=== PATIENT | female | born 1975 | race American Indian/Alaskan Native ===

== ENCOUNTER 2016-10-29 01:09 | Emergency (ER) | payer MEDICAID ==
[2016-10-29 01:26] VITALS: BP 137/97
[2016-10-29 02:01] LABS: Eosinophils % (Auto) TNR % (0.0-4.3); Hematocrit TNR % (30.3-42.9); Hemoglobin TNR gm/dl (10.1-14.3); Red Blood Count TNR M/mm3 (3.65-5.03); White Blood Count TNR K/mm3 (4.5-11.0)
[2016-10-29 02:02] LABS: Basophils % (Auto) TNR % (0.0-1.8); Diff Status TNR; Mean Corpuscular HGB Conc TNR % (30-34); Mean Corpuscular Hemoglobin TNR pg (28-32); Mean Corpuscular Volume TNR fl (79-97); Mean Platelet Volume TNR fl (6-12); Platelet Count TNR K/mm3 (140-440); Red Cell Distribution Width TNR % (13.2-15.2)
[2016-10-29 02:16] LABS: Amylase 71 units/L (27-131); Anion Gap 16 mmol/L; Blood Urea Nitrogen 12 mg/dL (7-17); Calcium 8.6 mg/dL (8.4-10.2); Carbon Dioxide 25 mmol/L (22-30); Chloride 98.4 mmol/L (98-107); Glucose 117 mg/dL (65-100); Potassium 3.6 mmol/L (3.6-5.0); Sodium 136 mmol/L (137-145)
[2016-10-29 02:46] LABS: Basophils % (Auto) 1.2 % (0.0-1.8); Hematocrit 37.4 % (30.3-42.9); Hemoglobin 12.1 gm/dl (10.1-14.3); Mean Corpuscular HGB Conc 32 % (30-34); Mean Corpuscular Volume 79 fl (79-97); Platelet Count 401 K/mm3 (140-440); Red Blood Count 4.74 M/mm3 (3.65-5.03); Red Cell Distribution Width 14.8 % (13.2-15.2); White Blood Count 7.4 K/mm3 (4.5-11.0)
[2016-10-29 03:00] LABS: Mean Corpuscular Hemoglobin 25 pg (28-32)
== END 2016-10-29 02:22 | disposition left against medical advice (07) ==
LOC: ED 01:09
DX: R07.81 Pleurodynia (principal); Z53.21 Procedure and treatment not carried out due to patient leaving prior to being seen by health care provider
CPT/HCPCS: 36415; 80048; 82150; 84484; 85025; 93005; 93010

== ENCOUNTER 2018-10-13 04:33 | Emergency (ER) | payer MEDICARE ==
[2018-10-13] MEDS ORDERED: BABY ASPIRIN PO ONE (06:20)
[2018-10-13] MEDS ORDERED: PROVENTIL IH ONE (06:22)
[2018-10-13] MEDS ORDERED: CARAFATE PO ONE (06:23)
--- NOTE | 2018-10-13 06:25 | Emergency Department Report ---
ED General Adult HPI - General Chief complaint: Dyspnea/Respdistress Stated complaint: SOB Time Seen by Provider: 10/13/18 06:01 Source: patient Mode of arrival: Ambulatory Limitations: No Limitations - History of Present Illness Initial comments: Patient presents to the emergency Department chief complaint of chest pain and palpitations. Patient states she has a history of asthma, acid reflux, and hiatal hernia. Patient also states that her asthma is acting up as well. Patient states that for the last 3 days she saw heart palpitations and chest pain along with the burning and acid reflux. Patient states that she had her thyroid removed in April and has not had a thyroid levels checked since that time. Patient denies any ventricular chest pain better or worse. Patient has had continuous chest pain 3 days. -: Gradual Location: chest Radiation: non-radiation Severity scale (0 -10): 5 Quality: burning Consistency: constant Improves with: none Worsens with: none Associated Symptoms: denies other symptoms Treatments Prior to Arrival: none - Related Data Home Medications Medication Instructions Recorded Confirmed Last Taken ALBUTEROL Inhaler (OR & NICU) 2 puff IH QID PRN 07/09/13 05/17/14 05/17/14 [Proair] Fluticasone/Salmeterol [Advair 1 puff IH BID 05/17/14 05/17/14 05/16/14 Diskus 100-50 mcg] Montelukast Sodium [Singulair] 4 mg PO QPM 05/17/14 05/17/14 05/16/14 Previous Rx's Medication Instructions Recorded Last Taken Type ALBUTEROL NEB's [Proventil 0.083% 2.5 mg IH TID PRN #25 units 09/23/13 05/17/14 Rx NEBS] Famotidine [Pepcid] 40 mg PO QHS #7 tablet 10/15/13 05/17/14 Rx Acetaminophen/Codeine 1 tab PO Q4HR PRN #20 tablet 05/17/14 Unknown Rx [Acetaminophen-Codeine #3 TAB] Sucralfate [Carafate] 1 gm PO Q6HR #60 tablet 05/17/14 Unknown Rx raNITIdine HCl [Ranitidine] 300 mg PO QPM #30 tablet 05/17/14 Unknown Rx Albuterol Sulfate [Albuterol 0.63% 0.63 mg IH Q4H PRN #25 neb 12/25/15 Unknown Rx NEBS] Amoxicillin/K Clav Tab [Augmentin 1 tab PO Q12HR #14 tab 09/13/15 Unknown Rx 875 mg] Ipratropium [Atrovent] 0.5 mg IH Q6H PRN #25 neb 09/13/15 Unknown Rx Promethazine [Phenergan TAB] 25 mg PO Q6HR PRN #12 tab 09/13/15 Unknown Rx ALBUTEROL Inhaler (OR & NICU) 2 puff IH QID PRN #1 device 03/04/16 Unknown Rx [ProAir HFA Inhaler] Albuterol Sulfate [Albuterol 0.63% 0.63 mg IH Q4HR PRN #30 vial 03/04/16 Unknown Rx NEBS] Azithromycin [Zithromax TAB] 250 mg PO QDAY #6 tablet 03/04/16 Unknown Rx predniSONE [Deltasone] 50 mg PO QDAY #5 tab 03/04/16 Unknown Rx Dicyclomine [Bentyl] 20 mg PO QID PRN #20 tablet 09/16/18 Unknown Rx Ondansetron [Zofran Odt] 4 mg PO Q8HR PRN #20 tab.rapdis 09/16/18 Unknown Rx Acetaminophen/Codeine [Tylenol 1 tab PO Q6H PRN #12 tab 09/23/18 Unknown Rx /Codeine # 3 tab] Ondansetron [Zofran Odt] 4 mg PO Q8HR PRN #20 tab.rapdis 09/23/18 Unknown Rx Esomeprazole Magnesium [Nexium] 20 mg PO BID #60 capsule. 10/13/18 Unknown Rx Ondansetron [Zofran Odt] 4 mg PO Q6HR PRN #12 tab.rapdis 10/13/18 Unknown Rx Allergies Allergy/AdvReac Type Severity Reaction Status Date / Time ibuprofen Allergy Hives Verified 09/13/15 02:27 shellfish derived Allergy Anaphylaxis Verified 07/09/13 12:03 tramadol Allergy Shortness Verified 09/03/13 05:48 of Breath ED Review of Systems ROS: Stated complaint: SOB Other details as noted in HPI Comment: All other systems reviewed and negative Constitutional: denies: chills, fever Eyes: denies: eye pain, eye discharge, vision change ENT: denies: ear pain, throat pain Respiratory: denies: cough, shortness of breath, wheezing Cardiovascular: chest pain. denies: palpitations Endocrine: no symptoms reported Gastrointestinal: denies: abdominal pain, nausea, diarrhea Genitourinary: denies: urgency, dysuria, discharge Musculoskeletal: denies: back pain, joint swelling, arthralgia Skin: denies: rash, lesions Neurological: denies: headache, weakness, paresthesias Psychiatric: denies: anxiety, depression Hematological/Lymphatic: denies: easy bleeding, easy bruising ED Past Medical Hx - Past Medical History Previous Medical History?: Yes Hx Hypertension: No Hx Diabetes: No Hx Deep Vein Thrombosis: No Hx Pulmonary Embolism: Yes Hx GERD: Yes Hx Renal Disease: No Hx Sickle Cell Disease: No Hx Seizures: No Hx Asthma: Yes Hx HIV: No Additional medical history: Vaginal delivery X 6 - Surgical History Past Surgical History?: Yes Additional Surgical History: , hernia repair, thyroidectomy - Social History Smoking Status: Never Smoker Substance Use Type: None - Medications Home Medications: Home Medications Medication Instructions Recorded Confirmed Last Taken Type ALBUTEROL Inhaler (OR & NICU) 2 puff IH QID PRN 07/09/13 05/17/14 05/17/14 History [Proair] ALBUTEROL NEB's [Proventil 0.083% 2.5 mg IH TID PRN #25 units 09/23/13 05/17/14 05/17/14 Rx NEBS] Famotidine [Pepcid] 40 mg PO QHS #7 tablet 10/15/13 05/17/14 05/17/14 Rx Acetaminophen/Codeine 1 tab PO Q4HR PRN #20 tablet 05/17/14 Unknown Rx [Acetaminophen-Codeine #3 TAB] Fluticasone/Salmeterol [Advair 1 puff IH BID 05/17/14 05/17/14 05/16/14 History Diskus 100-50 mcg] Montelukast Sodium [Singulair] 4 mg PO QPM 05/17/14 05/17/14 05/16/14 History Sucralfate [Carafate] 1 gm PO Q6HR #60 tablet 05/17/14 Unknown Rx raNITIdine HCl [Ranitidine] 300 mg PO QPM #30 tablet 05/17/14 Unknown Rx Albuterol Sulfate [Albuterol 0.63% 0.63 mg IH Q4H PRN #25 neb 09/13/15 Unknown Rx NEBS] Amoxicillin/K Clav Tab [Augmentin 1 tab PO Q12HR #14 tab 09/13/15 Unknown Rx 875 mg] Ipratropium [Atrovent] 0.5 mg IH Q6H PRN #25 neb 09/13/15 Unknown Rx Promethazine [Phenergan TAB] 25 mg PO Q6HR PRN #12 tab 09/13/15 Unknown Rx ALBUTEROL Inhaler (OR & NICU) 2 puff IH QID PRN #1 device 03/04/16 Unknown Rx [ProAir HFA Inhaler] Albuterol Sulfate [Albuterol 0.63% 0.63 mg IH Q4HR PRN #30 vial 03/04/16 Unknown Rx NEBS] Azithromycin [Zithromax TAB] 250 mg PO QDAY #6 tablet 03/04/16 Unknown Rx predniSONE [Deltasone] 50 mg PO QDAY #5 tab 03/04/16 Unknown Rx Dicyclomine [Bentyl] 20 mg PO QID PRN #20 tablet 09/16/18 Unknown Rx Ondansetron [Zofran Odt] 4 mg PO Q8HR PRN #20 tab.rapdis 09/16/18 Unknown Rx Acetaminophen/Codeine [Tylenol 1 tab PO Q6H PRN #12 tab 09/23/18 Unknown Rx /Codeine # 3 tab] Ondansetron [Zofran Odt] 4 mg PO Q8HR PRN #20 tab.rapdis 09/23/18 Unknown Rx Esomeprazole Magnesium [Nexium] 20 mg PO BID #60 capsule.dr 10/13/18 Unknown Rx Ondansetron [Zofran Odt] 4 mg PO Q6HR PRN #12 tab.rapdis 10/13/18 Unknown Rx ED Physical Exam - General Limitations: No Limitations General appearance: alert, in no apparent distress - Head Head exam: Present: atraumatic, normocephalic - Eye Eye exam: Present: normal appearance, PERRL, EOMI - ENT ENT exam: Present: mucous membranes moist - Neck Neck exam: Present: normal inspection - Respiratory Respiratory exam: Present: normal lung sounds bilaterally. Absent: respiratory distress, wheezes, rales, rhonchi - Cardiovascular Cardiovascular Exam: Present: regular rate, normal rhythm. Absent: systolic murmur, diastolic murmur, rubs, gallop - GI/Abdominal GI/Abdominal exam: Present: soft, normal bowel sounds. Absent: distended, tenderness - Extremities Exam Extremities exam: Present: normal inspection - Back Exam Back exam: Present: normal inspection - Neurological Exam Neurological exam: Present: alert, oriented X3, CN II-XII intact. Absent: motor sensory deficit - Psychiatric Psychiatric exam: Present: normal affect, normal mood - Skin Skin exam: Present: warm, dry, intact, normal color. Absent: rash ED Course Vital Signs 10/13/18 10/13/18 10/13/18 04:35 04:38 05:00 Temperature 98.3 F 98.3 F 97.9 F Pulse Rate 92 H 97 H 82 Respiratory 18 18 16 Rate Blood Pressure 171/80 Blood Pressure 201/90 126/80 [Right] O2 Sat by Pulse 99 98 99 Oximetry 10/13/18 09:30 Temperature Pulse Rate Respiratory 18 Rate Blood Pressure Blood Pressure [Right] O2 Sat by Pulse Oximetry ED Medical Decision Making - Lab Data Result diagrams: 10/13/18 06:33 10/13/18 06:33 Lab Results 10/13/18 10/13/18 10/13/18 Range/Units 06:33 06:33 06:33 WBC 8.9 (4.5-11.0) K/mm3 RBC 4.19 (3.65-5.03) M/mm3 Hgb 10.4 (10.1-14.3) gm/dl Hct 32.7 (30.3-42.9) % MCV 78 L (79-97) fl MCH 25 L (28-32) pg MCHC 32 (30-34) % RDW 16.2 H (13.2-15.2) % Plt Count 381 (140-440) K/mm3 Lymph % (Auto) 24.3 (13.4-35.0) % Emmons % (Auto) 6.7 (0.0-7.3) % Eos % (Auto) 0.5 (0.0-4.3) % Baso % (Auto) 0.8 (0.0-1.8) % Lymph # 2.2 (1.2-5.4) K/mm3 Emmons # 0.6 (0.0-0.8) K/mm3 Eos # 0.0 (0.0-0.4) K/mm3 Baso # 0.1 (0.0-0.1) K/mm3 Seg Neutrophils % 67.7 (40.0-70.0) % Seg Neutrophils # 6.0 (1.8-7.7) K/mm3 PT (12.2-14.9) Sec. INR (0.87-1.13) APTT (24.2-36.6) Sec. Sodium (137-145) mmol/L Potassium (3.6-5.0) mmol/L Chloride (98-107) mmol/L Carbon Dioxide (22-30) mmol/L Anion Gap mmol/L BUN (7-17) mg/dL Creatinine (0.7-1.2) mg/dL Estimated GFR ml/min BUN/Creatinine Ratio % Glucose (65-100) mg/dL Calcium (8.4-10.2) mg/dL Total Bilirubin (0.1-1.2) mg/dL AST (5-40) units/L ALT (7-56) units/L Alkaline Phosphatase (35-129) units/L Troponin T (0.00-0.029) ng/mL Total Protein (6.3-8.2) g/dL Albumin (3.9-5) g/dL Albumin/Globulin Ratio % Lipase (13-60) units/L TSH 3.030 (0.270-4.200) mlU/mL Thyroxine (T4) 8.5 (4.0-12.0) ug/dL Urine Color (Yellow) Urine Turbidity (Clear) Urine pH (5.0-7.0) Ur Specific [place] (1.003-1.030) Urine Protein (Negative) mg/dL Urine Glucose (UA) (Negative) mg/dL Urine Ketones (Negative) mg/dL Urine Blood (Negative) Urine Nitrite (Negative) Urine Bilirubin (Negative) Urine Urobilinogen (<2.0) mg/dL Ur Leukocyte Esterase (Negative) Urine WBC (Auto) Urine RBC (Auto) (0.0-6.0) /HPF U Epithel Cells (Auto) (0-13.0) /HPF Urine HCG, Qual (Negative) Urine Opiates Screen Urine Methadone Screen Ur Barbiturates Screen Ur Phencyclidine Scrn Ur Amphetamines Screen U Benzodiazepines Scrn Urine Cocaine Screen U Marijuana (THC) Screen Drugs of Abuse Note 10/13/18 10/13/18 10/13/18 Range/Units 06:33 06:33 09:04 WBC (4.5-11.0) K/mm3 RBC (3.65-5.03) M/mm3 Hgb (10.1-14.3) gm/dl Hct (30.3-42.9) % MCV (79-97) fl MCH (28-32) pg MCHC (30-34) % RDW (13.2-15.2) % Plt Count (140-440) K/mm3 Lymph % (Auto) (13.4-35.0) % Emmons % (Auto) (0.0-7.3) % Eos % (Auto) (0.0-4.3) % Baso % (Auto) (0.0-1.8) % Lymph # (1.2-5.4) K/mm3 Emmons # (0.0-0.8) K/mm3 Eos # (0.0-0.4) K/mm3 Baso # (0.0-0.1) K/mm3 Seg Neutrophils % (40.0-70.0) % Seg Neutrophils # (1.8-7.7) K/mm3 PT 15.9 H (12.2-14.9) Sec. INR 1.23 H (0.87-1.13) APTT 25.8 (24.2-36.6) Sec. Sodium 142 (137-145) mmol/L Potassium 3.8 (3.6-5.0) mmol/L Chloride 102.7 (98-107) mmol/L Carbon Dioxide 24 (22-30) mmol/L Anion Gap 19 mmol/L BUN 11 (7-17) mg/dL Creatinine 0.7 (0.7-1.2) mg/dL Estimated GFR > 60 ml/min BUN/Creatinine Ratio 16 % Glucose 105 H (65-100) mg/dL Calcium 8.8 (8.4-10.2) mg/dL Total Bilirubin 0.20 (0.1-1.2) mg/dL AST 12 (5-40) units/L ALT 9 (7-56) units/L Alkaline Phosphatase 74 (35-129) units/L Troponin T < 0.010 < 0.010 (0.00-0.029) ng/mL Total Protein 6.7 (6.3-8.2) g/dL Albumin 3.7 L (3.9-5) g/dL Albumin/Globulin Ratio 1.2 % Lipase 25 (13-60) units/L TSH (0.270-4.200) mlU/mL Thyroxine (T4) (4.0-12.0) ug/dL Urine Color (Yellow) Urine Turbidity (Clear) Urine pH (5.0-7.0) Ur Specific [place] (1.003-1.030) Urine Protein (Negative) mg/dL Urine Glucose (UA) (Negative) mg/dL Urine Ketones (Negative) mg/dL Urine Blood (Negative) Urine Nitrite (Negative) Urine Bilirubin (Negative) Urine Urobilinogen (<2.0) mg/dL Ur Leukocyte Esterase (Negative) Urine WBC (Auto) Urine RBC (Auto) (0.0-6.0) /HPF U Epithel Cells (Auto) (0-13.0) /HPF Urine HCG, Qual (Negative) Urine Opiates Screen Urine Methadone Screen Ur Barbiturates Screen Ur Phencyclidine Scrn Ur Amphetamines Screen U Benzodiazepines Scrn Urine Cocaine Screen U Marijuana (THC) Screen Drugs of Abuse Note 10/13/18 10/13/18 10/13/18 Range/Units Unknown Unknown Unknown WBC (4.5-11.0) K/mm3 RBC (3.65-5.03) M/mm3 Hgb (10.1-14.3) gm/dl Hct (30.3-42.9) % MCV (79-97) fl MCH (28-32) pg MCHC (30-34) % RDW (13.2-15.2) % Plt Count (140-440) K/mm3 Lymph % (Auto) (13.4-35.0) % Emmons % (Auto) (0.0-7.3) % Eos % (Auto) (0.0-4.3) % Baso % (Auto) (0.0-1.8) % Lymph # (1.2-5.4) K/mm3 Emmons # (0.0-0.8) K/mm3 Eos # (0.0-0.4) K/mm3 Baso # (0.0-0.1) K/mm3 Seg Neutrophils % (40.0-70.0) % Seg Neutrophils # (1.8-7.7) K/mm3 PT (12.2-14.9) Sec. INR (0.87-1.13) APTT (24.2-36.6) Sec. Sodium (137-145) mmol/L Potassium (3.6-5.0) mmol/L Chloride (98-107) mmol/L Carbon Dioxide (22-30) mmol/L Anion Gap mmol/L BUN (7-17) mg/dL Creatinine (0.7-1.2) mg/dL Estimated GFR ml/min BUN/Creatinine Ratio % Glucose (65-100) mg/dL Calcium (8.4-10.2) mg/dL Total Bilirubin (0.1-1.2) mg/dL AST (5-40) units/L ALT (7-56) units/L Alkaline Phosphatase (35-129) units/L Troponin T (0.00-0.029) ng/mL Total Protein (6.3-8.2) g/dL Albumin (3.9-5) g/dL Albumin/Globulin Ratio % Lipase (13-60) units/L TSH (0.270-4.200) mlU/mL Thyroxine (T4) (4.0-12.0) ug/dL Urine Color Yellow (Yellow) Urine Turbidity Clear (Clear) Urine pH 6.0 (5.0-7.0) Ur Specific [place] 1.010 (1.003-1.030) Urine Protein <15 mg/dl (Negative) mg/dL Urine Glucose (UA) Neg (Negative) mg/dL Urine Ketones Neg (Negative) mg/dL Urine Blood Neg (Negative) Urine Nitrite Neg (Negative) Urine Bilirubin Neg (Negative) Urine Urobilinogen < 2.0 (<2.0) mg/dL Ur Leukocyte Esterase Neg (Negative) Urine WBC (Auto) Not Reportable Urine RBC (Auto) 1.0 (0.0-6.0) /HPF U Epithel Cells (Auto) 3.0 (0-13.0) /HPF Urine HCG, Qual Negative (Negative) Urine Opiates Screen Presumptive negative Urine Methadone Screen Presumptive negative Ur Barbiturates Screen Presumptive negative Ur Phencyclidine Scrn Presumptive negative Ur Amphetamines Screen Presumptive negative U Benzodiazepines Scrn Presumptive negative Urine Cocaine Screen Presumptive negative U Marijuana (THC) Screen Presumptive negative Drugs of Abuse Note Disclamer - EKG Data -: EKG Interpreted by Me EKG shows normal: sinus rhythm - Radiology Data Radiology results: report reviewed - Medical Decision Making Discussed results with the patient Patient had improvement with medications in the ED Patient states she's been out of her Nexium and thinks this is why she's having this pain Critical care attestation.: If time is entered above; I have spent that time in minutes in the direct care of this critically ill patient, excluding procedure time. ED Disposition Clinical Impression: Nonspecific chest pain Disposition: DC-01 TO HOME OR SELFCARE Is pt being admited?: No Does the pt Need Aspirin: No Condition: Stable Instructions: Chest Pain (ED) Additional Instructions: return if worse Prescriptions: Esomeprazole Magnesium [Nexium] 20 mg PO BID #60 capsule. Ondansetron [Zofran Odt] 4 mg PO Q6HR PRN #12 tab.rapdis PRN Reason: Nausea Referrals: PRABHAKAR SARAVIA MD [Primary Care Provider] - 3-5 Days Time of Disposition: 10:36
[2018-10-13] MEDS ORDERED: PROTONIX PO ONE (06:48)
[2018-10-13] MEDS: PROTONIX IV ONE ×2 (06:50→06:51)
[2018-10-13 07:07] LABS: Basophils # (Auto) 0.1 K/mm3 (0.0-0.1); Basophils % (Auto) 0.8 % (0.0-1.8); Eosinophils % (Auto) 0.5 % (0.0-4.3); Hematocrit 32.7 % (30.3-42.9); Hemoglobin 10.4 gm/dl (10.1-14.3); Lymphocytes # (Auto) 2.2 K/mm3 (1.2-5.4); Lymphocytes % (Auto) 24.3 % (13.4-35.0); Mean Corpuscular HGB Conc 32 % (30-34); Mean Corpuscular Volume 78 fl (79-97); Monocytes # (Auto) 0.6 K/mm3 (0.0-0.8); Monocytes % (Auto) 6.7 % (0.0-7.3); Platelet Count 381 K/mm3 (140-440); Red Blood Count 4.19 M/mm3 (3.65-5.03); Red Cell Distribution Width 16.2 % (13.2-15.2)
[2018-10-13 07:18] LABS: Alanine Aminotransferase 9 units/L (7-56); Albumin 3.7 g/dL (3.9-5); BUN/Creatinine Ratio 16; Blood Urea Nitrogen 11 mg/dL (7-17); Calcium 8.8 mg/dL (8.4-10.2); Hemolysis Index 18; INR 1.23 (0.87-1.13); Partial Thromboplastin Time 25.8 Sec. (24.2-36.6)
[2018-10-13] MEDS ORDERED: LIDOCAINE VISCOUS 2% PO ONE (07:58)
[2018-10-13] MEDS ORDERED: ALUM-MAG HYDROX-SIMETH 200-200-20MG/5ML PO ONE (07:58)
[2018-10-13 08:20] LABS: Bilirubin,Urine NEG (Negative); Blood,Urine NEG (Negative); Color,Urine Yellow (Yellow); Protein,Urine <15 mg/dL mg/dL (Negative); Urobilinogen,Urine < 2.0 mg/dL (<2.0)
[2018-10-13 08:24] LABS: HCG Qualitative,Urine Negative (Negative)
[2018-10-13 08:34] LABS: Amphetamine Screen,Urine PRESUMPTIVE NEGATIVE; Benzodiazepines Screen,Urine PRESUMPTIVE NEGATIVE; Cannabinoid Screen,Urine PRESUMPTIVE NEGATIVE; Cocaine Screen,Urine PRESUMPTIVE NEGATIVE; Methadone Screen,Urine PRESUMPTIVE NEGATIVE; Opiate Screen,Urine PRESUMPTIVE NEGATIVE
[2018-10-13] MEDS ORDERED: ZOFRAN IV ONE (09:09)
[2018-10-13] MEDS ORDERED: MORPHINE IV ONE (09:09)
--- NOTE | 2018-10-13 09:43 | XRay Report ---
AP CHEST: HISTORY: chest pain AP view of the chest demonstrates a normal mediastinal and cardiac contour with clear lungs and normal bony and soft tissue structures. IMPRESSION: Unremarkable AP chest.
[2018-10-13] MEDS ORDERED: NORCO 5/325 PO ONE (09:48)
[2018-10-13] MEDS ORDERED: ZOFRAN ODT ONE (09:56)
[2018-10-13 10:57] VITALS: BP 132/80
== END 2018-10-13 11:17 | disposition home or self-care (01) ==
LOC: ED 04:33
DX: R07.89 Other chest pain (principal); R00.2 Palpitations; K21.9 Gastro-esophageal reflux disease without esophagitis; J45.909 Unspecified asthma, uncomplicated; Z79.899 Other long term (current) drug therapy; Z86.711 Personal history of pulmonary embolism; E89.0 Postprocedural hypothyroidism; Z88.6 Allergy status to analgesic agent; Z91.013 Allergy to seafood
CPT/HCPCS: 36415; 71045; 80053; 80307; 81001; 81025; 83690; 84436; 84443; 84484; 85025; 85610; 85730; 93005; 93010; 94640; 96374; Q0162